=== PATIENT | male | born 1995 | race Caucasian/White ===

== ENCOUNTER 2018-10-12 19:12 | Emergency (ER) | payer OTHER ==
--- NOTE | 2018-10-12 19:56 | ER ---
Nurse's Notes [facility] Name: Catarino Hutchison Age: 23 yrs Sex: Male : 1995 Arrival Date: 10/12/2018 Time: 19:16 Bed 23 Private MD: Diagnosis: Acute upper respiratory infection, unspecified Presentation: 10/12 19:23 Presenting complaint: Patient states: cough, headache \T\ congestion x 2 days. Currently aa1 taking Flonase for a sinus infection. Transition of care: patient was not received from another setting of care. Onset of symptoms was October 11, 2018. Risk Assessment: Do you want to hurt yourself or someone else? Patient reports no desire to harm self or others. Initial Sepsis Screen: Does the patient meet any 2 criteria? No. Patient's initial sepsis screen is negative. Does the patient have a suspected source of infection? No. Patient's initial sepsis screen is negative. Care prior to arrival: None. 19:23 Method Of Arrival: Ambulatory aa1 19:23 Acuity: TRANG 4 aa1 Triage Assessment: 19:24 General: Appears in no apparent distress. comfortable, Behavior is calm, cooperative, aa1 appropriate for age. Historical: - Allergies: 19:24 No Known Allergies; aa1 - Home Meds: 19:24 None [Active]; aa1 - PMHx: 19:24 None; aa1 - PSHx: 19:24 None; aa1 - Immunization history:: Flu vaccine is not up to date. . - Social history:: Smoking status: Patient/guardian denies using tobacco. - Ebola Screening: : Patient denies exposure to infectious person Patient denies travel to an Ebola-affected area in the 21 days before illness onset. Screenin:20 Abuse screen: Denies threats or abuse. Denies injuries from another. Nutritional aj1 screening: No deficits noted. Tuberculosis screening: No symptoms or risk factors identified. Fall Risk None identified. Assessment: 20:20 General: Appears in no apparent distress. comfortable, Behavior is calm, cooperative, aj1 appropriate for age. Pain: Complains of pain in face. Neuro: Level of Consciousness is awake, alert, obeys commands. Cardiovascular: Patient's skin is warm and dry. Respiratory: Airway is patent Respiratory effort is even, unlabored, Respiratory pattern is regular, symmetrical, Breath sounds are clear bilaterally. GI: No signs and/or symptoms were reported involving the gastrointestinal system. : No signs and/or symptoms were reported regarding the genitourinary system. EENT: Reports nasal congestion nasal discharge. Derm: Skin is pink, warm \T\ dry. black. Musculoskeletal: Circulation, motion, and sensation intact. Vital Signs: 19:24 BP 136 / 72; Pulse 76; Resp 16; Temp 98.6; Pulse Ox 98% on R/A; Weight 93.44 kg; Height aa1 6 ft. 1 in. (185.42 cm); Pain 7/10; 19:24 Body Mass Index 27.18 (93.44 kg, 185.42 cm) aa1 ED Course: 19:16 Patient arrived in ED. 19:24 Triage completed. aa1 19:24 Arm band placed on right wrist. Patient placed in an exam room, on a stretcher. aa1 19:28 Mic Crowley MD is Attending Physician. 20:20 Jeanna Ferrell RN is Primary Nurse. aj1 20:20 Patient has correct armband on for positive identification. aj1 20:20 No provider procedures requiring assistance completed. Patient did not have IV access aj during this emergency room visit. Administered Medications: No medications were administered Outcome: 19:55 Discharge ordered by . 20:20 Discharged to home ambulatory. aj1 20:20 Condition: good 20:20 Discharge instructions given to patient, Instructed on discharge instructions, follow up and referral plans. Demonstrated understanding of instructions, follow-up care. 20:25 Patient left the ED. aj1 Signatures: Jeanna Ferrell RN RN [facility] Martha Romo RN RN aa Kristina Covarrubias Mic Crowley MD MD
--- NOTE | 2018-10-12 19:56 | EDPHYS ---
Physician Documentation [facility] Name: Catarino Hutchison Age: 23 yrs Sex: Male : 1995 Arrival Date: 10/12/2018 Time: 19:16 Bed 23 Private MD: ED Physician Mic Crowley HPI: 10/12 19:53 This 23 yrs old Male presents to ER via Ambulatory with complaints of gs Congestion, Headache. 19:53 Onset: The symptoms/episode began/occurred 2 day(s) ago. Severity of symptoms: At their gs worst the symptoms were moderate, in the emergency department the symptoms are unchanged. Modifying factors: The symptoms are alleviated by the symptoms are aggravated by smoke. Associated signs and symptoms: Pertinent positives: Pertinent negatives: chest pain, fever, sore throat. The patient has experienced similar episodes in the past, a few times. Historical: - Allergies: 19:24 No Known Allergies; aa1 - Home Meds: 19:24 None [Active]; aa1 - PMHx: 19:24 None; aa1 - PSHx: 19:24 None; aa1 - Immunization history:: Flu vaccine is not up to date. . - Social history:: Smoking status: Patient/guardian denies using tobacco. - Ebola Screening: : Patient denies exposure to infectious person Patient denies travel to an Ebola-affected area in the 21 days before illness onset. ROS: 19:53 All other systems are negative. gs Exam: 19:53 Head/Face: Normocephalic, atraumatic. Eyes: Pupils equal round and reactive to light, gs extra-ocular motions intact. Lids and lashes normal. Conjunctiva and sclera are non-icteric and not injected. Cornea within normal limits. Periorbital areas with no swelling, redness, or edema. ENT: Nares patent. No nasal discharge, no septal abnormalities noted. Tympanic membranes are normal and external auditory canals are clear. Oropharynx with no redness, swelling, or masses, exudates, or evidence of obstruction, uvula midline. Mucous membranes moist. Neck: Trachea midline, no thyromegaly or masses palpated, and no cervical lymphadenopathy. Supple, full range of motion without nuchal rigidity, or vertebral point tenderness. No Meningismus. Chest/axilla: Normal chest wall appearance and motion. Nontender with no deformity. No lesions are appreciated. Cardiovascular: Regular rate and rhythm with a normal S1 and S2. No gallops, murmurs, or rubs. Normal PMI, no JVD. No pulse deficits. Respiratory: Lungs have equal breath sounds bilaterally, clear to auscultation and percussion. No rales, rhonchi or wheezes noted. No increased work of breathing, no retractions or nasal flaring. Abdomen/GI: Soft, non-tender, with normal bowel sounds. No distension or tympany. No guarding or rebound. No evidence of tenderness throughout. Back: No spinal tenderness. No costovertebral tenderness. Full range of motion. Skin: Warm, dry with normal turgor. Normal color with no rashes, no lesions, and no evidence of cellulitis. MS/ Extremity: Pulses equal, no cyanosis. Neurovascular intact. Full, normal range of motion. Neuro: Awake and alert, GCS 15, oriented to person, place, time, and situation. Cranial nerves II-XII grossly intact. Motor strength 5/5 in all extremities. Sensory grossly intact. Cerebellar exam normal. Normal gait. 19:53 Constitutional: The patient appears alert, awake. Vital Signs: 19:24 BP 136 / 72; Pulse 76; Resp 16; Temp 98.6; Pulse Ox 98% on R/A; Weight 93.44 kg; Height aa1 6 ft. 1 in. (185.42 cm); Pain 7/10; 19:24 Body Mass Index 27.18 (93.44 kg, 185.42 cm) aa1 MDM: 19:39 Patient medically screened. 19:53 Differential Diagnosis: Bronchitis Upper Respiratory Infection Viral Syndrome. Data reviewed: vital signs, nurses notes. Counseling: I had a detailed discussion with the patient and/or guardian regarding: the historical points, exam findings, and any diagnostic results supporting the discharge/admit diagnosis, the need for outpatient follow up. Response to treatment: There is no appreciated change of the patient's symptoms at this time, and as a result, I will discharge patient. Administered Medications: No medications were administered Disposition: 10/12/18 19:55 Discharged to Home. Impression: Acute upper respiratory infection, unspecified. - Condition is Stable. - Discharge Instructions: Upper Respiratory Infection, Adult. - Medication Reconciliation Form, Thank You Letter, Antibiotic Education, Prescription Opioid Use form. - Follow up: Private Physician; When: 2 - 3 days; Reason: Re-evaluation by your physician. Signatures: Jeanna Ferrell RN RN aj1 Martha Romo RN RN aa1 Mic Crowley MD MD gs Corrections: (The following items were deleted from the chart) 20:25 19:55 10/12/2018 19:55 Discharged to Home. Impression: Acute upper respiratory aj1 infection, unspecified. Condition is Stable. Forms are Medication Reconciliation Form, Thank You Letter, Antibiotic Education, Prescription Opioid Use. Follow up: Private Physician; When: 2 - 3 days; Reason: Re-evaluation by your physician. gs
== END 2018-10-12 20:25 | disposition home or self-care (01) ==
LOC: ER 19:12
DX: J06.9 Acute upper respiratory infection, unspecified (principal)
CPT/HCPCS: 99281

== ENCOUNTER 2021-05-01 08:59 | Emergency (ER) | payer OTHER ==
--- NOTE | 2021-05-01 09:29 | ER ---
Nurse's Notes [facility] Name: Catarino Hutchison Age: 25 yrs Sex: Male : 1995 Arrival Date: 05/01/2021 Time: 09:03 Bed 10 Private MD: Diagnosis: Cellulitis of buttock;Folliculitis Presentation: 05/01 09:06 Chief complaint: Patient states: rash to rectal area x 4 days. states that he has been [facility] using a\T\d ointment and destain but now is blistering. states rash started 2 days after shaving. Coronavirus screen: Vaccine status: Patient reports being unvaccinated. Ebola Screen: No symptoms or risks identified at this time. Initial Sepsis Screen: Does the patient meet any 2 criteria? Yes Does the patient have a suspected source of infection? No. Patient's initial sepsis screen is negative. Risk Assessment: Do you want to hurt yourself or someone else? Patient reports no desire to harm self or others. Onset of symptoms was April 27, 2021. 09:06 Method Of Arrival: Ambulatory [facility] 09:06 Acuity: TRANG 4 [facility] 09:06 Acuity: TRANG 5 [facility] Triage Assessment: 09:11 General: Appears in no apparent distress. Pain: Denies pain. Complains of pain in [facility] gluteal cleft. Historical: - Allergies: 09:10 No Known Allergies; [facility] - Home Meds: 09:10 albuterol sulfate 2.5 mg /3 mL (0.083 %) [facility] [place] for acute asthma attack [Active]; [facility] - PMHx: 09:10 Asthma; [facility] - Immunization history:: Adult Immunizations up to date, Client reports having NOT received the Covid vaccine. - Social history:: Smoking status: Patient reports the use of cigarette tobacco products, smokes one-half pack cigarettes per day. - Family history:: not pertinent. - Hospitalizations: : No recent hospitalization is reported. Vital Signs: 09:06 BP 142 / 88; Pulse 68; Resp 17; Temp 98.4(O); Pulse Ox 100% ; Weight 87.09 kg; Height 6 [facility] ft. 0 in. (182.88 cm); Pain 3/10; 09:06 Body Mass Index 26.04 (87.09 kg, 182.88 cm) [facility] ED Course: 09:03 Patient arrived in ED. mr 09:10 Triage completed. [facility] 09:11 Bret Corrales MD is Attending Physician. rn 09:33 Kerri Sims, MAIK is Primary Nurse. 09:41 No provider procedures requiring assistance completed. Patient did not have IV access ss during this emergency room visit. Administered Medications: No medications were administered Outcome: :28 Discharge ordered by . rn 09:41 Discharged to home ambulatory. ss 09:41 Condition: good 09:41 Discharge instructions given to patient, Instructed on discharge instructions, follow up and referral plans. medication usage, Demonstrated understanding of instructions, follow-up care, medications, Prescriptions given X 3. 09:42 Patient left the ED. Signatures: Dottie Rodriguez mr Bret Corrales MD MD rn Kerri Sims, RN RN Lyly Olsen RN RN [facility]
--- NOTE | 2021-05-01 09:29 | EDPHYS ---
Physician Documentation [facility] Name: Catarino Hutchison Age: 25 yrs Sex: Male : 1995 Arrival Date: 05/01/2021 Time: 09:03 Bed 10 Private MD: ED Physician Bret Corrales HPI: 05/01 09:25 This 25 yrs old Male presents to ER via Ambulatory with complaints of Rash. rn 09:25 The patient's rash thought to be caused by Dermatitis. The rash is located on the rn buttocks and gluteal cleft. Onset: The symptoms/episode began/occurred 5 day(s) ago. Associated signs and symptoms: Pertinent positives: itching, Pain Pertinent negatives: fever. Severity of symptoms: At their worst the symptoms were moderate in the emergency department the symptoms are unchanged. The patient has not experienced similar symptoms in the past. The patient has not recently seen a physician. Patient reports almost 1 week of rash and pain to buttocks. States last week shaved buttocks hair with razor. States is prone to rashes and easily gets dermatitis. Denies any fever. Reports broke out in a rash that has progressed and now draining pus. Denies any pain or rash to the frontal or perineal region. Denies any anal pain or difficulty with bowel movements.. Historical: - Allergies: 09:10 No Known Allergies; [facility] - Home Meds: 09:10 albuterol sulfate 2.5 mg /3 mL (0.083 %) [facility] for acute asthma attack [Active]; [facility] - PMHx: 09:10 Asthma; [facility] - Immunization history:: Adult Immunizations up to date, Client reports having NOT received the Covid vaccine. - Social history:: Smoking status: Patient reports the use of cigarette tobacco products, smokes one-half pack cigarettes per day. - Family history:: not pertinent. - Hospitalizations: : No recent hospitalization is reported. ROS: 09:25 Constitutional: Negative for fever, chills, and weight loss, Abdomen/GI: Negative for rn abdominal pain, nausea, vomiting, diarrhea, and constipation, Skin: Positive for rash and purulence in the gluteal cleft Exam: 09:25 Constitutional: This is a well developed, well nourished patient who is awake, alert, rn and in no acute distress. Skin: Warm, gluteal cleft with signs of folliculitis and some drainage of pus. No perineal rash or perianal swelling or tenderness or fluctuance. Purulence located primarily where cheeks of buttocks meet and have been rubbing. Vital Signs: 09:06 BP 142 / 88; Pulse 68; Resp 17; Temp 98.4(O); Pulse Ox 100% ; Weight 87.09 kg; Height 6 6 ft. 0 in. (182.88 cm); Pain 3/10; 09:06 Body Mass Index 26.04 (87.09 kg, 182.88 cm) 6 MDM: 09:11 Patient medically screened. rn 09:25 Differential diagnosis: Folliculitis, dermatitis, cellulitis. Data reviewed: vital rn signs, nurses notes, and as a result, I will discharge patient. Counseling: I had a detailed discussion with the patient and/or guardian regarding: the historical points, exam findings, and any diagnostic results supporting the discharge/admit diagnosis, the need for outpatient follow up, to return to the emergency department if symptoms worsen or persist or if there are any questions or concerns that arise at home. Special discussion: I discussed with the patient/guardian in detail that at this point there is no indication for admission to the hospital. It is understood, however, that if the symptoms persist or worsen the patient needs to return immediately for re-evaluation. 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
[2021-05-01 09:55] VITALS: BP 142/88; TEMP 98.4; O2SAT 100
== END 2021-05-01 09:42 | disposition home or self-care (01) ==
LOC: ER 08:59
DX: L03.317 Cellulitis of buttock (principal); L73.9 Follicular disorder, unspecified; F17.210 Nicotine dependence, cigarettes, uncomplicated
CPT/HCPCS: 99282

== ENCOUNTER 2021-05-03 21:30 | Emergency (ER) | payer OTHER ==
[2021-05-03] MEDS ORDERED: METHYLPREDNISOLONE 125 MG INJ ONE (22:10)
[2021-05-03] MEDS ORDERED: FAMOTIDINE 20 MG TAB ONE (22:10)
--- NOTE | 2021-05-03 22:42 | ER ---
Nurse's Notes [facility] Name: Catarino Hutchison Age: 25 yrs Sex: Male : 1995 Arrival Date: 05/03/2021 Time: 21:32 Bed Treatment Private MD: Diagnosis: Urticaria, unspecified Presentation: 05/03 21:43 Chief complaint: Patient states: I began having hives on Friday, today I noticed it has ld1 spread to my face and become worse. Pt reports itchy, raised rash. Coronavirus screen: At this time, the client does not indicate any symptoms associated with coronavirus-19. Ebola Screen: No symptoms or risks identified at this time. Onset: The symptoms/episode began/occurred gradually. Anaphylaxis evaluation, no signs or symptoms of anaphylaxis were noted. Initial Sepsis Screen: Does the patient meet any 2 criteria? No. Patient's initial sepsis screen is negative. Does the patient have a suspected source of infection? No. Patient's initial sepsis screen is negative. Risk Assessment: Do you want to hurt yourself or someone else? Patient reports no desire to harm self or others. Onset of symptoms was May 03, 2021. 21:43 Method Of Arrival: Ambulatory ld1 21:43 Acuity: TRANG 4 ld1 Triage Assessment: 21:44 General: Appears in no apparent distress. comfortable, Behavior is calm, cooperative, ld1 appropriate for age. Pain: Denies pain. EENT: No signs and/or symptoms were reported regarding the EENT system. Neuro: Level of Consciousness is awake, alert, obeys commands, Oriented to person, place, time, situation, Appropriate for age. Cardiovascular: Capillary refill < 3 seconds Patient's skin is warm and dry. Respiratory: Airway is patent Respiratory effort is even, unlabored, Respiratory pattern is regular, symmetrical. GI: Abdomen is flat, non-distended. : No signs and/or symptoms were reported regarding the genitourinary system. Derm: Rash noted that is itchy, red, raised. Musculoskeletal: No signs and/or symptoms reported regarding the musculoskeletal system. Historical: - Allergies: 21:44 No Known Allergies; ld1 - Home Meds: 21:44 None [Active]; ld1 - PMHx: 21:44 None; ld1 - PSHx: 21:44 None; ld1 - Immunization history:: Adult Immunizations not up to date, Client reports having NOT received the Covid vaccine. - Social history:: Smoking status: Patient reports the use of cigarette tobacco products, smokes one pack cigarettes per day. Patient uses alcohol, occasionally. Screenin:46 Abuse screen: Denies threats or abuse. Denies injuries from another. Nutritional ld1 screening: No deficits noted. Tuberculosis screening: No symptoms or risk factors identified. Fall Risk None identified. Assessment: 21:46 Reassessment: See triage assessment. Respiratory: Airway is patent Respiratory effort ld1 is even, unlabored, Respiratory pattern is regular, symmetrical, Breath sounds are clear bilaterally. Vital Signs: 21:43 BP 139 / 84; Pulse 88; Resp 20; Temp 98.7(TE); Pulse Ox 99% on R/A; Weight 88.45 kg; ld1 Height 6 ft. 0 in. (182.88 cm); Pain 0/10; 21:43 Body Mass Index 26.45 (88.45 kg, 182.88 cm) ld1 ED Course: 21:32 Patient arrived in ED. kc5 21:43 Demetra Charles, RN is Primary Nurse. ld1 21:44 Triage completed. ld1 21:44 Arm band placed on right wrist. ld1 21:46 Patient has correct armband on for positive identification. Placed in gown. Bed in low ld1 position. Call light in reach. Side rails up X2. Pulse ox on. NIBP on. Door closed. Noise minimized. 21:46 No provider procedures requiring assistance completed. ld1 21:54 Luis Markham PA is PHCP. cp 21:54 Gerard Last MD is Attending Physician. cp 22:46 Patient did not have IV access during this emergency room visit. ld1 Administered Medications: 22:15 Drug: Pepcid (famotidine) 20 mg Route: PO; ld1 22:16 Follow up: Response: No adverse reaction ld1 22:15 Drug: SOLU-Medrol (methylPREDNISolone sodium succinate) 125 mg Route: IM; Site: left ld1 deltoid; 22:16 Follow up: Response: No adverse reaction ld1 Outcome: 22:41 Discharge ordered by . cp 22:46 Discharged to home ambulatory. ld1 22:46 Condition: stable 22:46 Discharge instructions given to patient, Instructed on discharge instructions, follow up and referral plans. medication usage, Demonstrated understanding of instructions, follow-up care, medications, Prescriptions given X 2. 22:46 Patient left the ED. ld1 Signatures: Luis Markham PA PA cp Dibbern, Lauren RN RN ld1 Kathleen Downs [id number] Corrections: (The following items were deleted from the chart) 21:45 21:44 PMHx: Asthma; ld1 ld1
--- NOTE | 2021-05-03 22:42 | EDPHYS ---
Physician Documentation [facility] Name: Catarino Hutchison Age: 25 yrs Sex: Male : 1995 Arrival Date: 05/03/2021 Time: 21:32 Bed Treatment Private MD: ED Physician Gerard Last HPI: 05/03 22:10 This 25 yrs old Male presents to ER via Ambulatory with complaints of Hives. cp 22:10 The patient's rash thought to be caused by an unknown cause. cp 22:10 The rash is located on the body diffusely. The rash can be described as described as cp hives, itchy. Onset: The symptoms/episode began/occurred 3 day(s) ago, and became worse today, after getting out of warm shower. Associated signs and symptoms: Pertinent positives: itching, Pertinent negatives: difficulty breathing, fever, Pain swelling of lips, swelling of throat, swelling of tongue. Severity of symptoms: in the emergency department the symptoms are unchanged. Treatment given at home: took Benadryl yesterday, none today. Patient reports only known allergy is to bee stings. Historical: - Allergies: 21:44 No Known Allergies; ld1 - Home Meds: 21:44 None [Active]; ld1 - PMHx: 21:44 None; ld1 - PSHx: 21:44 None; ld1 - Immunization history:: Adult Immunizations not up to date, Client reports having NOT received the Covid vaccine. - Social history:: Smoking status: Patient reports the use of cigarette tobacco products, smokes one pack cigarettes per day. Patient uses alcohol, occasionally. ROS: 22:15 Constitutional: Negative for body aches, chills, fever, poor PO intake. cp 22:15 Eyes: Negative for injury, pain, redness, and discharge. cp 22:15 ENT: Negative for drainage from ear(s), ear pain, sore throat, difficulty swallowing, difficulty handling secretions. 22:15 Cardiovascular: Negative for chest pain, palpitations. 22:15 Respiratory: Negative for cough, shortness of breath, wheezing. 22:15 Abdomen/GI: Negative for abdominal pain, nausea, vomiting, and diarrhea. 22:15 Skin: Positive for rash, diffusely. 22:15 Neuro: Negative for altered mental status, headache, weakness. 22:15 All other systems are negative. Exam: 22:20 Constitutional: The patient appears in no acute distress, alert, awake, comfortable, cp non-toxic, well developed, well nourished. 22:20 Head/Face: Normocephalic, atraumatic. cp 22:20 Eyes: Periorbital structures: appear normal, Conjunctiva: normal, no exudate, no injection, Lids and lashes: appear normal, bilaterally. 22:20 ENT: External ear(s): are unremarkable, Nose: is normal, Mouth: Lips: moist, Oral mucosa: moist, Posterior pharynx: Airway: no evidence of obstruction, patent. 22:20 Neck: ROM/movement: is normal, is supple, without pain, no range of motions limitations. 22:20 Cardiovascular: Rate: normal. 22:20 Respiratory: the patient does not display signs of respiratory distress, Respirations: normal, no use of accessory muscles, no retractions, labored breathing, is not present. 22:20 Abdomen/GI: Exam negative for discomfort, distension, guarding. 22:20 Skin: consistent with urticaria, and is diffusely located. 22:20 Neuro: Orientation: to person, place \T\ time. Mentation: is normal. Vital Signs: 21:43 BP 139 / 84; Pulse 88; Resp 20; Temp 98.7(TE); Pulse Ox 99% on R/A; Weight 88.45 kg; ld1 Height 6 ft. 0 in. (182.88 cm); Pain 0/10; 21:43 Body Mass Index 26.45 (88.45 kg, 182.88 cm) ld1 MDM: 21:58 Patient medically screened. cp 22:15 Differential diagnosis: allergic reaction, anaphylaxis. cp 22:40 Data reviewed: vital signs, nurses notes. cp 22:40 Counseling: I had a detailed discussion with the patient and/or guardian regarding: the cp historical points, exam findings, and any diagnostic results supporting the discharge/admit diagnosis, the need for outpatient follow up, a family practitioner, to return to the emergency department if symptoms worsen or persist or if there are any questions or concerns that arise at home. ED course: VSS. Patient appears non-toxic and no signs of respiratory distress. Will discharge to home for continued monitoring. Recommend OTC Benadryl at night and non-seating antihistamine during the day. Administered Medications: 22:15 Drug: Pepcid (famotidine) 20 mg Route: PO; ld1 22:16 Follow up: Response: No adverse reaction ld1 22:15 Drug: SOLU-Medrol (methylPREDNISolone sodium succinate) 125 mg Route: IM; Site: left ld1 deltoid; 22:16 Follow up: Response: No adverse reaction ld1 Disposition Summary: 05/03/21 22:41 Discharge Ordered Location: Home cp Problem: new cp Symptoms: have improved cp Condition: Stable cp Diagnosis - Urticaria, unspecified cp Followup: cp - With: Private Physician - When: 2 - 3 days - Reason: Recheck today's complaints Discharge Instructions: - Discharge Summary Sheet cp - Hives cp Forms: - Medication Reconciliation Form cp - Thank You Letter cp - Antibiotic Education cp - Prescription Opioid Use cp Prescriptions: - Prednisone 20 mg Oral Tablet - take 2 tablets by ORAL route once daily for 5 days; 10 tablet; Refills: 0, cp Product Selection Permitted - Pepcid 20 mg Oral Tablet - take 1 tablet by ORAL route once daily for 10 days; 10 tablet; Refills: 0, cp Product Selection Permitted Signatures: Luis Markham PA PA cp Demetra Charles RN RN ld1 Corrections: (The following items were deleted from the chart) 21:45 21:44 PMHx: Asthma; ld1 ld1
[2021-05-03 23:35] VITALS: BP 139/84; TEMP 98.7; O2SAT 99
== END 2021-05-03 22:46 | disposition home or self-care (01) ==
LOC: ER 21:30
DX: L50.9 Urticaria, unspecified (principal); F17.210 Nicotine dependence, cigarettes, uncomplicated
CPT/HCPCS: 96372; 99283; J2930

== ENCOUNTER 2021-05-22 21:30 | Emergency (ER) | payer OTHER ==
[2021-05-22] MEDS ORDERED: ACETAMINOPHEN 500 MG TAB ONE (22:43)
[2021-05-22 23:56] LABS: SARS-COV-2 RT PCR NEGATIVE (NEGATIVE)
[2021-05-23] MEDS ORDERED: dexAMETHasone 10 MG/ML VIAL ONE (01:10)
[2021-05-23] MEDS ORDERED: LEVALBUTEROL 1.25 MG/3 ML NEB ONE (01:10)
--- NOTE | 2021-05-23 01:43 | EDPHYS ---
Physician Documentation [facility] Name: Catarino Hutchison Age: 25 yrs Sex: Male : 1995 Arrival Date: 05/22/2021 Time: 21:32 Bed 14 Private MD: ED Physician Tony Michel HPI: 05/22 23:46 This 25 yrs old Male presents to ER via Ambulatory with complaints of Fever, Cough. jmm 23:46 The patient reports fever. Onset: The symptoms/episode began/occurred today. Modifying jmm factors: there are no obvious modifying factors. Associated signs and symptoms: Pertinent positives: cough, headache, runny nose, sinus congestion. This is a 25 year old male with a history of acute silicosis that presents to the ED with complaints of cough, fever, vomiting, shortness of breath. . Historical: - Allergies: 22:44 yellow jacket venom; tw5 - Home Meds: 22:44 Albuterol Inhl [Active]; Sharmin 30 mg Oral tab 2 tabs 2 times per day [Active]; epi tw5 pen [Active]; - PMHx: 22:44 acute silicosis; tw5 - PSHx: 22:44 tubes in ears; tw5 - Immunization history:: Flu vaccine is not up to date. - Social history:: Smoking status: Patient reports the use of cigarette tobacco products, smokes one-half pack cigarettes per day. ROS: 23:46 Constitutional: Positive for fever. jmm 23:46 Abdomen/GI: Positive for vomiting. 23:46 Neuro: Positive for headache. 23:46 All other systems are negative. Exam: 23:46 Constitutional: This is a well developed, well nourished patient who is awake, alert, jmm and in no acute distress. Head/Face: atraumatic. Eyes: EOMI, no conjunctival erythema appreciated ENT: Moist Mucus Membranes Neck: Trachea midline, Supple Chest/axilla: Normal chest wall appearance and motion. Cardiovascular: Regular rate and rhythm. No edema appreciated Respiratory: Normal respirations, no respiratory distress appreciated Abdomen/GI: Non distended, soft Back: Normal ROM Skin: General appearance color normal MS/ Extremity: Moves all extremities, no obvious deformities appreciated, no edema noted to the lower extremities Neuro: Awake and alert, normal gait Psych: Behavior is normal, Mood is normal, Patient is cooperative and pleasant Vital Signs: 22:42 BP 114 / 68; Pulse 114; Resp 18; Temp 101.6(O); Pulse Ox 99% on R/A; Weight 83.91 kg; tw5 Height 6 ft. 0 in. (182.88 cm); Pain 5/10; 23:24 BP 127 / 82; Pulse 99; Resp 20; Pulse Ox 97% on R/A; ic1 05/23 00:07 BP 112 / 70; Pulse 88; Resp 18; Pulse Ox 97% on R/A; ic1 01:56 BP 106 / 79; Pulse 85; Resp 18; Pulse Ox 99% on R/A; ic1 05/22 22:42 Body Mass Index 25.09 (83.91 kg, 182.88 cm) tw5 MDM: 05/22 23:46 Patient medically screened. [facility] 05/23 01:41 Data reviewed: vital signs, nurses notes. [facility] 01:41 Counseling: I had a detailed discussion with the patient and/or guardian regarding: the jm historical points, exam findings, and any diagnostic results supporting the discharge/admit diagnosis, lab results, radiology results, the need for outpatient follow up, to return to the emergency department if symptoms worsen or persist or if there are any questions or concerns that arise at home. ED course: Patient is alert and non toxic in appearance in the ED. No signs of resp distress. Patient advised to follow up with pcp and otherwise given strict return precautions. . 05/22 22:41 Order name: COVID-19/FLU A+B (Document "Date of Onset" if Symptomatic); Complete Time: 00:06 05/22 22:41 Order name: Strep; Complete Time: 23:28 tw05/22 23:16 Order name: Throat Culture EDMS Administered Medications: 05/22 22:42 Drug: Tylenol 1000 mg Route: PO; 05/23 01:10 Drug: Decadron (dexamethasone) 10 mg Route: IM; Site: left deltoid; ic1 Disposition: 05:20 Co-signature as Attending Physician, Tony Michel MD. [email or web address] Disposition Summary: 05/23/21 01:42 Discharge Ordered Location: Home [facility] Condition: Stable [facility] Diagnosis - Acute upper respiratory infection, unspecified jm Followup: [facility] - With: Private Physician - When: 2 - 3 days - Reason: Recheck today's complaints, Continuance of care, Re-evaluation by your physician Discharge Instructions: - Discharge Summary Sheet [facility] - Upper Respiratory Infection, Adult [facility] Forms: - Medication Reconciliation Form [facility] - Thank You Letter miguel - Antibiotic Education [facility] - Prescription Opioid Use [facility] Prescriptions: - Prednisone 20 mg Oral Tablet - take 3 tablets by ORAL route once daily for 5 days; 15 tablet; Refills: 0, [facility] Product Selection Permitted - Zithromax Z-Lj 250 mg Oral Tablet - take 1 tablet by ORAL route as directed for 5 days Day 1 - take two (2) tablets jmm one time. Day 2, 3, 4 , 5 take one (1) tablet once daily.; 6 tablet; Refills: 0, Product Selection Permitted - albuterol sulfate 90 mcg/actuation Inhalation HFA aerosol inhaler - inhale 2 puff by INHALATION route every 4-6 hours; 1 Pump; Refills: 0, Product jm Selection Permitted Signatures: Dispatcher [employer] Sandoval Adams PA PA jmm Holmes, Maurice, MD MD [facility] Kecia Gonzalez [facility] Lise Soares RN RN ic1 Corrections: (The following items were deleted from the chart) 05/22 22:46 22:44 Allergies: No Known Allergies; 5 tw5
--- NOTE | 2021-05-23 01:43 | ER ---
Nurse's Notes [facility] Name: Catarino Hutchison Age: 25 yrs Sex: Male : 1995 Arrival Date: 05/22/2021 Time: 21:32 Bed 14 Private MD: Diagnosis: Acute upper respiratory infection, unspecified Presentation: 05/22 22:42 Chief complaint: Patient states: "I have been feeling ill, cough, fever, congestion. It tw5 started for the congestion, but he fever started today around 6 pm. Coronavirus screen: Vaccine status: Patient reports being unvaccinated. Ebola Screen: Patient negative for fever greater than or equal to 101.5 degrees Fahrenheit, and additional compatible Ebola Virus Disease symptoms Patient denies exposure to infectious person. Patient denies travel to an Ebola-affected area in the 21 days before illness onset. Initial Sepsis Screen: Does the patient meet any 2 criteria? HR > 90 bpm. Does the patient have a suspected source of infection? No. Patient's initial sepsis screen is negative. Risk Assessment: Do you want to hurt yourself or someone else? Patient reports no desire to harm self or others. Onset of symptoms is unknown. 22:42 Method Of Arrival: Ambulatory tw5 22:42 Acuity: TRANG 4 tw5 Triage Assessment: 22:47 General: Appears in no apparent distress. Behavior is calm, cooperative, appropriate tw5 for age. Pain: Complains of pain in "Mostly in the throat." Pain currently is 5 out of 10 on a pain scale. Historical: - Allergies: 22:44 yellow jacket venom; tw5 - Home Meds: 22:44 Albuterol Inhl [Active]; Sharmin 30 mg Oral tab 2 tabs 2 times per day [Active]; epi tw5 pen [Active]; - PMHx: 22:44 acute silicosis; tw5 - PSHx: 22:44 tubes in ears; tw5 - Immunization history:: Flu vaccine is not up to date. - Social history:: Smoking status: Patient reports the use of cigarette tobacco products, smokes one-half pack cigarettes per day. Screenin:46 Abuse screen: Denies threats or abuse. Denies injuries from another. Nutritional tw5 screening: No deficits noted. Tuberculosis screening: No symptoms or risk factors identified. Fall Risk No fall in past 12 months (0 pts). Secondary diagnosis (15 points). Assessment: 23:24 General: Appears in no apparent distress. Behavior is calm, cooperative. Pain: Denies ic1 pain. Pain: Denies pain. Complains of pain in abdomen. Neuro: No deficits noted. Cardiovascular: No deficits noted. Respiratory: No deficits noted. GI: Reports lower abdominal pain, diarrhea, nausea, vomiting, since . : No deficits noted. EENT: No deficits noted. Derm: No deficits noted. Vital Signs: 22:42 BP 114 / 68; Pulse 114; Resp 18; Temp 101.6(O); Pulse Ox 99% on R/A; Weight 83.91 kg; tw5 Height 6 ft. 0 in. (182.88 cm); Pain 5/10; 23:24 BP 127 / 82; Pulse 99; Resp 20; Pulse Ox 97% on R/A; ic1 05/23 00:07 BP 112 / 70; Pulse 88; Resp 18; Pulse Ox 97% on R/A; ic1 01:56 BP 106 / 79; Pulse 85; Resp 18; Pulse Ox 99% on R/A; ic1 05/22 22:42 Body Mass Index 25.09 (83.91 kg, 182.88 cm) tw5 ED Course: 05/22 21:32 Patient arrived in ED. ag3 22:44 Triage completed. tw5 22:47 Arm band placed on right wrist. tw5 22:48 Sandoval Duran PA is PHCP. [facility] 22:48 Tony Michel MD is Attending Physician. [facility] 22:54 Strep Sent. tw5 22:54 COVID-19/FLU A+B (Document "Date of Onset" if Symptomatic) Sent. tw5 22:54 COVID swab sent to lab. Flu and/or RSV swab sent to lab. tw5 23:38 Patient has correct armband on for positive identification. Bed in low position. Call ic1 light in reach. Side rails up X2. 05/23 01:47 Throat Culture Sent. tw5 Administered Medications: 05/22 22:42 Drug: Tylenol 1000 mg Route: PO; tw5 05/23 01:10 Drug: Decadron (dexamethasone) 10 mg Route: IM; Site: left deltoid; ic1 Outcome: 01:42 Discharge ordered by MD. flores 01:56 Discharged to home ambulatory. ic1 01:56 Condition: stable 01:56 Discharge instructions given to patient, Instructed on discharge instructions, follow up and referral plans. Demonstrated understanding of instructions, follow-up care, medications, Prescriptions given X 3. 01:57 Patient left the ED. ic1 Signatures: Sandoval Duran PA PA jmm Gomez, Alice ag3 Kecia Gonzalez tw5 Lise Soares RN RN ic1 Corrections: (The following items were deleted from the chart) 05/22 22:46 22:44 Allergies: No Known Allergies; tw5 tw5
[2021-05-23 02:44] VITALS: TEMP 101.6
[2021-05-23 02:48] VITALS: BP 106/79; O2SAT 99
== END 2021-05-23 01:57 | disposition home or self-care (01) ==
LOC: ER 21:30
DX: J06.9 Acute upper respiratory infection, unspecified (principal); Z20.822 Contact with and (suspected) exposure to COVID-19
CPT/HCPCS: 87070; 87081; 0240U; 96372; 99283; J1100

== ENCOUNTER 2022-09-16 11:10 | Emergency (ER) | payer OTHER ==
[2022-09-16] MEDS ORDERED: KETOROLAC 30 MG/ML INJ ONE (11:44)
--- NOTE | 2022-09-16 11:49 | RAD REPORT ---
[facility] 11:38 am CLINICAL HISTORY: back pain COMPARISON: No comparisons TECHNIQUE: CT of the abdomen and pelvis was performed without contrast. All CT scans are performed using dose optimization technique as appropriate and may include automated exposure control or mA/KV adjustment according to patient size. FINDINGS: Lower chest: No acute abnormality. Liver: No acute abnormality or suspicious lesions. Biliary: No biliary ductal dilatation. Stomach: No significant focal abnormality. Duodenum: No significant focal abnormality. Pancreas: No significant abnormality. Spleen: No significant abnormality. Adrenal: No suspicious lesions. Kidney/ureter: No hydronephrosis. No renal calculi. Retroperitoneum: No retroperitoneal adenopathy. Vascular: No aneurysm. Bowel: No significant focal abnormality. Normal appendix . Peritoneum: No ascites or free air. Bladder: Grossly unremarkable. Reproductive: No adnexal masses. Bones: No acute fracture. Other: n/a IMPRESSION: No acute intra-abdominal or pelvic finding. Normal appendix. No urinary tract calculi.
[2022-09-16 12:11] LABS: Absolute Lymphocytes (CBC) 1.7 K/uL (0.7-4.9); Hematocrit 44.8 % (39.6-49.0); Lymphocytes % 17.3 % (15.3-44.8); MCV 84.5 fL (80-100); MPV 6.5 fL (7.6-11.3); RBC Red Blood Cell Count 5.31 M/uL (4.33-5.43)
[2022-09-16 12:32] LABS: Albumin 4.1 g/dL (3.4-5.0); Bilirubin Total 0.7 mg/dL (0.2-1.0); Potassium 4.3 mEq/L (3.5-5.1); Protein, Total 7.7 g/dL (6.4-8.2)
[2022-09-16 13:11] LABS: Specific Gravity 1.021 (1.005-1.030); Urine Bilirubin NEGATIVE (Negative); Urine Blood Negative (Negative); Urine Clarity Clear (Clear); Urine Color Light-Yellow (Yellow); Urine Glucose NEGATIVE (Negative); Urine Protein NEGATIVE (Negative); Urine Urobilinogen Normal (Normal)
--- NOTE | 2022-09-16 13:16 | ER ---
Nurse's Notes [facility] Name: Catarino Hutchison Age: 27 yrs Sex: Male : 1995 Arrival Date: 09/16/2022 Time: 11:10 Bed 16 Private MD: Diagnosis: Low back pain Presentation: 09/16 11:27 Chief complaint: Patient states: Lower back pain for 5 days. Coronavirus screen: Client ll1 denies travel out of the [place] in the last 14 days. At this time, the client does not indicate any symptoms associated with coronavirus-19. Ebola Screen: Patient denies travel to an Ebola-affected area in the 21 days before illness onset. Initial Sepsis Screen: Does the patient meet any 2 criteria? No. Patient's initial sepsis screen is negative. Does the patient have a suspected source of infection? No. Patient's initial sepsis screen is negative. Risk Assessment: Do you want to hurt yourself or someone else? Patient reports no desire to harm self or others. Onset of symptoms was September 11, 2022. 11:27 Method Of Arrival: Ambulatory [facility] 11:27 Acuity: TRANG 3 ll1 Triage Assessment: 12:00 General: Appears in no apparent distress. uncomfortable, Behavior is calm, cooperative, eh3 appropriate for age. Musculoskeletal: Circulation, motion, and sensation intact. Range of motion: intact in all extremities. Historical: - Allergies: 11:27 yellow jacket venom; ll1 - Home Meds: 12:00 Albuterol Inhl [Active]; Sharmin 30 mg Oral tab 2 tabs 2 times per day [Active]; epi eh3 pen [Active]; - PMHx: 11:27 acute silicosis; ll1 - PSHx: 11:27 tubes in Ears; ll1 - Immunization history:: Adult Immunizations up to date. - Social history:: Smoking status: Patient denies any tobacco usage or history of. - Family history:: not pertinent. - Hospitalizations: : No recent hospitalization is reported. Screenin:00 [facility] ED Fall Risk Assessment (Adult) Score/Fall Risk Level 0 - 2 = Low Risk. Abuse eh3 screen: Denies threats or abuse. Denies injuries from another. Nutritional screening: No deficits noted. Tuberculosis screening: No symptoms or risk factors identified. Assessment: 12:00 General: Appears in no apparent distress. uncomfortable, Behavior is calm, cooperative, eh3 appropriate for age. Pain: Complains of pain in back. Neuro: Level of Consciousness is awake, alert, obeys commands, Oriented to person, place, time, situation. Cardiovascular: Capillary refill < 3 seconds Patient's skin is warm and dry. Respiratory: Airway is patent Respiratory effort is even, unlabored, Respiratory pattern is regular, symmetrical. GI: Abdomen is round non-distended. : No signs and/or symptoms were reported regarding the genitourinary system. EENT: No signs and/or symptoms were reported regarding the EENT system. Derm: Skin is pink, warm \T\ dry. Musculoskeletal: Circulation, motion, and sensation intact. Range of motion: intact in all extremities. 13:00 Reassessment: Patient appears in no apparent distress at this time. Patient and/or eh3 family updated on plan of care and expected duration. Pain level reassessed. Patient is alert, oriented x 3, equal unlabored respirations, skin warm/dry/pink. Vital Signs: 11:27 BP 125 / 64; Pulse 89; Resp 17; Temp 98.9; Pulse Ox 100% ; Weight 108.86 kg; Height 6 ll1 ft. 0 in. ; 12:00 BP 121 / 75; Pulse 67; Resp 16; Pulse Ox 100% ; eh3 13:00 BP 119 / 91; Pulse 68; Resp 16; Pulse Ox 100% on R/A; eh3 11:27 Body Mass Index 32.55 (108.86 kg, 182.88 cm) ll1 ED Course: 11:12 Patient arrived in ED. rg4 11:13 Bret Corrales MD is Attending Physician. rn 11:27 Arm band placed on Patient placed in an exam room, on a stretcher. ll1 11:28 Triage completed. ll1 11:35 Brie Rea, MAIK is Primary Nurse. eh3 11:39 CT [facility] Protocol In Process Unspecified. EDMS 12:00 Patient has correct armband on for positive identification. Bed in low position. Call eh3 light in reach. Side rails up X2. NIBP on. Door closed. Noise minimized. 12:00 Inserted saline lock: 20 gauge in left antecubital area, using aseptic technique. Blood eh3 collected. 13:40 No provider procedures requiring assistance completed. IV discontinued, intact, eh3 bleeding controlled, No redness/swelling at site. Pressure dressing applied. Administered Medications: 12:00 Drug: Ketorolac IVP 30 mg Route: IVP; Site: left antecubital; 3 13:42 Follow up: Response: Pain is decreased 3 Medication: 13:40 VIS not applicable for this client. 3 Outcome: 13:15 Discharge ordered by . rn 13:40 Discharged to home ambulatory. [facility] 13:40 Condition: stable 13:40 Discharge instructions given to patient, Instructed on discharge instructions, follow up and referral plans. no drinking with medication, no driving heavy equipment, medication usage, Demonstrated understanding of instructions, follow-up care, medications, Prescriptions given X 2. 13:42 Patient left the ED. 3 Signatures: Dispatcher [employer] EDMS Bret Corrales MD MD rn Garcia, Rubi rg4 Luis Jean RN RN 1 Brie Rea RN RN 3
--- NOTE | 2022-09-16 13:16 | EDPHYS ---
Physician Documentation [facility] Name: Catarino Hutchison Age: 27 yrs Sex: Male : 1995 Arrival Date: 09/16/2022 Time: 11:10 Bed 16 Private MD: ED Physician Bret Corrales HPI: 09/16 12:09 This 27 yrs old Male presents to ER via Ambulatory with complaints of Back Pain. rn 12:09 The patient presents with pain that is acute. The symptoms are located in the low back. rn Onset: The symptoms/episode began/occurred 5 day(s) ago. The pain does not radiate. Associated signs and symptoms: Pertinent positives: none Pertinent negatives: abdominal pain, chest pain, fever, hematuria, incontinence, nausea, numbness, tingling, urinary retention, vomiting, weakness. Modifying factors: The patient symptoms are alleviated by remaining still, the patient symptoms are aggravated by movement. Severity of symptoms: At their worst the symptoms were moderate, in the emergency department the symptoms are unchanged. The patient has not experienced similar symptoms in the past. The patient has not recently seen a physician. Pt reports back pain, lower back pain, non-radiating, no fever, no trauma, no bowel or bladder problems, no weakness. Does not use IV drugs. No hx of kidney stones. No abd or chest pain. No sob. . Historical: - Allergies: 11:27 yellow jacket venom; ll1 - Home Meds: 12:00 Albuterol Inhl [Active]; Sharmin 30 mg Oral tab 2 tabs 2 times per day [Active]; epi eh3 pen [Active]; - PMHx: 11:27 acute silicosis; ll1 - PSHx: 11:27 tubes in Ears; ll1 - Immunization history:: Adult Immunizations up to date. - Social history:: Smoking status: Patient denies any tobacco usage or history of. - Family history:: not pertinent. - Hospitalizations: : No recent hospitalization is reported. ROS: 12:09 Constitutional: Negative for fever, chills, and weight loss, Neck: Negative for injury, rn pain, and swelling, Cardiovascular: Negative for chest pain, palpitations, and edema, Respiratory: Negative for shortness of breath, cough, wheezing, and pleuritic chest pain, Abdomen/GI: Negative for abdominal pain, nausea, vomiting, diarrhea, and constipation, Back: + low back pain : Negative for injury, bleeding, discharge, and swelling, MS/Extremity: Negative for injury and deformity, Skin: Negative for injury, rash, and discoloration, Neuro: Negative for headache, weakness, numbness, tingling, and seizure. Exam: 12:09 Constitutional: This is a well developed, well nourished patient who is awake, alert, rn appears in pain Cardiovascular: Regular rate and rhythm. No pulse deficits. Respiratory: No increased work of breathing, no retractions or nasal flaring. Abdomen/GI: Soft, non-tender Back: No spinal tenderness. No CVAT Skin: Warm, dry MS/ Extremity: Pulses equal, no cyanosis. Neuro: Awake and alert, GCS 15 Vital Signs: 11:27 BP 125 / 64; Pulse 89; Resp 17; Temp 98.9; Pulse Ox 100% ; Weight 108.86 kg; Height 6 ll1 ft. 0 in. ; 12:00 BP 121 / 75; Pulse 67; Resp 16; Pulse Ox 100% ; eh3 13:00 BP 119 / 91; Pulse 68; Resp 16; Pulse Ox 100% on R/A; eh3 11:27 Body Mass Index 32.55 (108.86 kg, 182.88 cm) ll1 MDM: 11:13 Patient medically screened. rn 13:12 Differential diagnosis: arthritis, Fatigue Hydronephrosis Osteoarthritis ruptured disc, rn spinal injury, sprain, Ureterolithiasis vertebral fracture. Data reviewed: vital signs, nurses notes, lab test result(s), radiologic studies, CT scan, and as a result, I will discharge patient. Counseling: I had a detailed discussion with the patient and/or guardian regarding: the historical points, exam findings, and any diagnostic results supporting the discharge/admit diagnosis, lab results, radiology results, the need for outpatient follow up, to return to the emergency department if symptoms worsen or persist or if there are any questions or concerns that arise at home. Special discussion: I discussed with the patient/guardian in detail that at this point there is no indication for admission to the hospital. It is understood, however, that if the symptoms persist or worsen the patient needs to return immediately for re-evaluation. 09/16 11:26 Order name: CBC with Diff; Complete Time: 12:27 ll1 09/16 11:26 Order name: CMP; Complete Time: 12:37 09/16 11:26 Order name: Urinalysis w/ reflexes; Complete Time: 13:12 [facility] 09/16 11:26 Order name: CT Stone Protocol; Complete Time: 12:00 [facility] 09/16 11:26 Order name: IV Saline Lock; Complete Time: 12:04 [facility] 09/16 11:26 Order name: Labs collected and sent; Complete Time: 12:04 [facility] Administered Medications: 12:00 Drug: Ketorolac IVP 30 mg Route: IVP; Site: left antecubital; eh3 13:42 Follow up: Response: Pain is decreased eh3 Disposition Summary: 09/16/22 13:15 Discharge Ordered Location: Home rn Problem: new rn Symptoms: have improved rn Condition: Stable rn Diagnosis - Low back pain rn Followup: rn - With: Private Physician - When: As needed - Reason: Recheck today's complaints, Re-evaluation by your physician Discharge Instructions: - Discharge Summary Sheet rn - Acute Back Pain, Adult rn - Musculoskeletal Pain rn Forms: - Medication Reconciliation Form rn - Thank You Letter rn - Antibiotic rn document improvement - Prescription Opioid Use rn Prescriptions: - Cyclobenzaprine 10 mg Oral Tablet - take 1 tablet by ORAL route every 8 hours As needed; 15 tablet; Refills: 0, rn Product Selection Permitted - Medrol (Lj) 4 mg Oral Tablets, Dose Pack - take 1 tablet by ORAL route as directed - follow package instructions; 1 rn packet; Refills: 0, Product Selection Permitted Signatures: Dispatcher [employer] Bret Rice MD MD rn Lewis, Lynsay RN RN 1 Brie Rea RN RN 3
[2022-09-16 13:53] VITALS: BP 125/64; TEMP 98.9; O2SAT 100
== END 2022-09-16 13:42 | disposition home or self-care (01) ==
LOC: ER 11:10
DX: M54.50 Low back pain, unspecified (principal); Z91.038 Other insect allergy status
CPT/HCPCS: 36415; 74176; 76377; 80053; 81003; 85025; 96374; 99284

== ENCOUNTER 2023-03-26 15:00 | Emergency (ER) | payer SELFPAY ==
--- NOTE | 2023-03-26 16:13 | RAD REPORT ---
EXAM DESCRIPTION: CT - [id number] - 03/26/2023 4:00 pm CLINICAL HISTORY: Trauma, head and neck injury. TRAUMA COMPARISON: No comparisons TECHNIQUE: Axial 5 mm thick images of the head were obtained. Axial 2 mm thick images of the cervical spine were obtained with sagittal and coronal reconstruction images generated and reviewed. All CT scans are performed using dose optimization technique as appropriate and may include automated exposure control or mA/KV adjustment according to patient size. FINDINGS: CT HEAD WITHOUT CONTRAST: No acute hemorrhage, hydrocephalus or extra-axial collection is identified.No areas of brain edema or midline shift. The paranasal sinuses and mastoids are clear.The calvarium is intact. CT CERVICAL SPINE WITHOUT CONTRAST: No fracture or subluxation.No prevertebral soft tissues swelling is identified. IMPRESSION: No acute intracranial or cervical spine findings.
[2023-03-26] MEDS ORDERED: KETOROLAC 30 MG/ML INJ ONE (16:20)
--- NOTE | 2023-03-26 16:22 | ER ---
Nurse's Notes [facility] Name: Catarino Hutchison Age: 27 yrs Sex: Male : 1995 Arrival Date: 03/26/2023 Time: 15:00 Bed DX5 Private MD: Diagnosis: Concussion without loss of consciousness;Abrasion of scalp Presentation: 03/26 15:46 Chief complaint: Patient states: stood up and hit his head on a piece of equipment , iw denies LOC, happened this morning at 1030 , c/o pounding headache. Coronavirus screen: At this time, the client does not indicate any symptoms associated with coronavirus-19. Ebola Screen: Patient negative for fever greater than or equal to 101.5 degrees Fahrenheit, and additional compatible Ebola Virus Disease symptoms Patient denies exposure to infectious person. Patient denies travel to an Ebola-affected area in the 21 days before illness onset. No symptoms or risks identified at this time. Mechanism of Injury: resulted from. Initial Sepsis Screen: Does the patient meet any 2 criteria? No. Patient's initial sepsis screen is negative. Does the patient have a suspected source of infection?. Risk Assessment: Do you want to hurt yourself or someone else? Patient reports no desire to harm self or others. 15:46 Method Of Arrival: Ambulatory iw 15:46 Acuity: TRANG 4 iw Historical: - Allergies: 15:47 yellow jacket venom; iw - PMHx: 15:47 acute silicosis; iw - PSHx: 15:47 tubes in Ears; iw Screenin:21 [facility] ED Fall Risk Assessment (Adult) Score/Fall Risk Level 0 - 2 = Low Risk. Abuse iw screen: Denies threats or abuse. Denies injuries from another. Nutritional screening: No deficits noted. Tuberculosis screening: No symptoms or risk factors identified. Assessment: 16:20 General: Appears in no apparent distress. Behavior is calm, cooperative. Pain: iw Complains of pain in head. Neuro: Level of Consciousness is awake, alert, obeys commands, Oriented to person, place, time, situation, Moves all extremities. Full function. Cardiovascular: Patient's skin is warm and dry. Respiratory: Respiratory effort is even, unlabored, Respiratory pattern is regular, symmetrical. GI: No signs and/or symptoms were reported involving the gastrointestinal system. Derm: Skin is intact, is healthy with good turgor. Musculoskeletal: Range of motion: intact in all extremities. Vital Signs: 15:46 BP 125 / 73; Pulse 89; Resp 16; Temp 98; Pulse Ox 99% on R/A; iw Kelly Coma Score: 15:46 Eye Response: spontaneous(4). Motor Response: obeys commands(6). Verbal Response: iw oriented(5). Total: 15. ED Course: 15:01 Patient arrived in ED. rg4 15:01 Dean Mcintyre MD is Attending Physician. rt 15:46 Kalina Ram, RN is Primary Nurse. iw 15:47 Triage completed. iw 15:47 Arm band placed on. iw 16:02 CT Head C Spine In Process Unspecified. EDMS 16:21 Patient has correct armband on for positive identification. Provided Education on: . iw 16:21 No provider procedures requiring assistance completed. Patient did not have IV access iw during this emergency room visit. Administered Medications: 16:16 Drug: Ketorolac IM 15 mg IM once Route: IM; Site: right deltoid; iw Medication: 16:21 VIS not applicable for this client. iw Outcome: 16:21 Discharge ordered by . rt 16:45 Patient left the ED. iw Signatures: Dispatcher [employer] EDKalina Guzman, Francisca Bustos RN rg4 Dean Mcintyre MD MD rt
--- NOTE | 2023-03-26 16:22 | EDPHYS ---
Physician Documentation [facility] Name: Catarino Hutchison Age: 27 yrs Sex: Male : 1995 Arrival Date: 03/26/2023 Time: 15:00 Bed DX5 Private MD: ED Physician Dean Mcintyre HPI: 03/26 17:16 This 27 yrs old Male presents to ER via Ambulatory with complaints of Head Injury-Adult.rt 17:16 Patient presents to the ED with head injury. Patient was wearing glasses and the top of rt his head when he stood up, hitting it on an object. The patient reports having a cut to the top of his head. Does report a headache at that time, moderate in severity, no rating. Denies loss of conscious, nausea, vomiting. Denies other acute complaints at this time. No other aggravating alleviating factors.. Historical: - Allergies: 15:47 yellow jacket venom; iw - PMHx: 15:47 acute silicosis; iw - PSHx: 15:47 tubes in Ears; iw ROS: 17:16 Constitutional: Negative for fever, chills, and weight loss, Cardiovascular: Negative rt for chest pain, palpitations, and edema, Respiratory: Negative for shortness of breath, cough, wheezing, and pleuritic chest pain, Abdomen/GI: Negative for abdominal pain, nausea, vomiting, diarrhea, and constipation, MS/Extremity: Negative for injury and deformity, Psych: Negative for depression, anxiety, suicide ideation, homicidal ideation, and hallucinations, 17:16 Skin: Positive for abrasion(s), Negative for rash, 17:16 Skin: Positive for 17:16 Neuro: Positive for headache, Negative for loss of consciousness, Exam: 17:16 Constitutional: This is a well developed, well nourished patient who is awake, alert, rt and in no acute distress. Neck: Trachea midline, no thyromegaly or masses palpated, and no cervical lymphadenopathy. Supple, full range of motion without nuchal rigidity, or vertebral point tenderness. No Meningismus. Chest/axilla: Normal chest wall appearance and motion. Nontender with no deformity. No lesions are appreciated. Cardiovascular: Regular rate and rhythm with a normal S1 and S2. No gallops, murmurs, or rubs. Normal PMI, no JVD. No pulse deficits. Respiratory: Lungs have equal breath sounds bilaterally, clear to auscultation and percussion. No rales, rhonchi or wheezes noted. No increased work of breathing, no retractions or nasal flaring. Abdomen/GI: Soft, non-tender, with normal bowel sounds. No distension or tympany. No guarding or rebound. No evidence of tenderness throughout. Skin: Warm, dry with normal turgor. Normal color with no rashes, no lesions, and no evidence of cellulitis. MS/ Extremity: Pulses equal, no cyanosis. Neurovascular intact. Full, normal range of motion. Neuro: Awake and alert, GCS 15, oriented to person, place, time, and situation. Cranial nerves II-XII grossly intact. Motor strength 5/5 in all extremities. Sensory grossly intact. Cerebellar exam normal. Normal gait. 17:16 Head/face: Abrasion to the top of the head, no lacerations amenable to repair. Mild bruising at the area, no hematoma, no other external evidence of trauma.. Vital Signs: 15:46 BP 125 / 73; Pulse 89; Resp 16; Temp 98; Pulse Ox 99% on R/A; iw Kelly Coma Score: 15:46 Eye Response: spontaneous(4). Motor Response: obeys commands(6). Verbal Response: iw oriented(5). Total: 15. MDM: 15:45 Patient medically screened. rt 17:16 Differential diagnosis: Concussion, skull fracture, intracranial hemorrhage. Data rt reviewed: vital signs, nurses notes, radiologic studies. Independent interpretation of the following test(s) in the Emergency Department CT Scan: My interpretation is No hemorrhage seen on interpretation of CT scan images. Counseling: I had a detailed discussion with the patient and/or guardian regarding the historical points, exam findings, and any diagnostic results supporting the discharge/admit diagnosis, radiology results, the need for outpatient follow up. 03/26 15:46 Order name: CT Head C Spine; Complete Time: 16:16 rt Administered Medications: 16:16 Drug: Ketorolac IM 15 mg IM once Route: IM; Site: right deltoid; iw Disposition Summary: 03/26/23 16:21 Discharge Ordered Notes: Location: Home rt Problem: new rt Symptoms: have improved rt Condition: Stable rt Diagnosis - Concussion without loss of consciousness rt - Abrasion of scalp rt Followup: rt - With: Private Physician - When: 2 - 3 days - Reason: Discharge Instructions: - Discharge Summary Sheet rt - Abrasion rt - Concussion, Adult rt Forms: - Work release form rt - Medication Reconciliation Form rt - Thank You Letter rt - Antibiotic Education rt - Prescription Opioid Use rt - Patient Portal Instructions rt - Leadership Thank You Letter rt Signatures: Dispatcher Kalina Weber, Dean Tapia RN, MD MD rt
[2023-03-26 16:50] VITALS: BP 125/73; TEMP 98; O2SAT 99
== END 2023-03-26 16:45 | disposition home or self-care (01) ==
LOC: ER 15:00
DX: S06.0X0A Concussion without loss of consciousness, initial encounter (principal)
CPT/HCPCS: 70450; 72125; 96372; 99283